=== PATIENT | male | born 1950 | race Hispanic/Latino ===

== ENCOUNTER 2022-04-18 11:40 | Outpatient (CLI) | payer OTHER | END 2022-04-18 11:41 | disposition home or self-care (01) | LOC: BURRAD 11:40 | PROVIDERS: ATTEND Family Medicine | DX: R05.9 Cough, unspecified (principal); R91.8 Other nonspecific abnormal finding of lung field; J18.1 Lobar pneumonia, unspecified organism | CPT/HCPCS: 71046 ==